=== PATIENT | male | born 1960 | race Caucasian/White ===

== ENCOUNTER → 2020-04-15 | Outpatient (CLI) | payer MEDICARE ==
[~2020-04-15] MED LIST: ACYC800 PO; Aspir 8181 MG PO; CLON2 PO; EPZICOM TABLET1 EAC1 PO; FLONASE ALLERG9.9 M2; LOPE2C; METO50ER PO; OMEP20ER PO; PRAM.125 PO; RALT400 PO; TESTONE CI200 MG/1 M; TRAZ100 PO
== END | disposition home or self-care (01) ==
LOC: LAB SHORT 11:30 → PLD 11:30
DX: L57.0 Actinic keratosis (principal)
CPT/HCPCS: 88305

== ENCOUNTER 2020-08-28 06:15 | Day surgery (SDC) | payer MEDICARE, OTHER ==
[~2020-08-28] VITALS: Ht 180.3 cm; Wt 75.6 kg
[~2020-08-28 06:15] MED LIST changes: +ABACAVIR-LAMIV1 EAC3 PO; +ACYC400 PO; +Aspirin EC81 MG PO; +CREON DR 24,001 EACH PO; +DEPO-TESTO200 MG/1 M IM; +Flonase 0.05% N16 GM; +LOPE2C PO; +NITR.4SL SL
--- NOTE | 2020-08-28 07:44 | NUR ---
08/28/20 0744 Angelita Landis BUPIVACAINE 0.5% 30 MLS MIXED W/ 0.15 ML EPI PER ORDER TO MAKE BUPIVACAINE 0.5% 1:200,000 FOR INJECTION AT OPSITE BY DR. GROVES. 20 MLS OF THIS INJECTED BY DR. GROVES.
[2020-11-09] MEDS ORDERED: Flonase 0.05% N16 GM (11:46)
[2020-11-09] MEDS ORDERED: CLON2 PO (11:46)
[2020-11-09] MEDS ORDERED: ABACAVIR-LAMIV1 EAC3 PO (11:46)
[2020-11-09] MEDS ORDERED: Aspirin EC81 MG PO (11:46)
[2020-11-09] MEDS ORDERED: LOPE2C PO (11:47)
[2020-11-09] MEDS ORDERED: CREON DR 24,001 EACH PO (11:47)
[2020-11-09] MEDS ORDERED: METO50ER PO (11:47)
[2020-11-09] MEDS ORDERED: PRAM.5 PO (11:48)
[2020-11-09] MEDS ORDERED: RALT400 PO (11:48)
[2020-11-09] MEDS ORDERED: NITR.4SL SL (11:48)
[2020-11-09] MEDS ORDERED: OMEP20ER PO (11:48)
[2020-11-09] MEDS ORDERED: TRAZ100 PO (11:49)
[2020-11-09] MEDS ORDERED: REVATIO20 MG (11:49)
[2020-11-09] MEDS ORDERED: DEPO-TESTO200 MG/1 M IM (11:49)
== END 2020-08-28 09:05 | disposition home or self-care (01) ==
LOC: ORSCSDS 06:15
PROVIDERS: Podiatrist Foot & Ankle Surgery
PROC: 0QBR0ZZ Excision of Left Toe Phalanx, Open Approach (ICD-10-PCS; principal; 2020-08-28 07:30)
PROC: 0QBP0ZZ Excision of Left Metatarsal, Open Approach (ICD-10-PCS; principal; 2020-08-28 07:30)
DX: M20.5X2 Other deformities of toe(s) (acquired), left foot (principal); B20 Human immunodeficiency virus [HIV] disease; I10 Essential (primary) hypertension; Z87.891 Personal history of nicotine dependence; N18.30 Chronic kidney disease, stage 3 unspecified; Z79.899 Other long term (current) drug therapy; Z79.82 Long term (current) use of aspirin
CPT/HCPCS: 88300; J0171; J0690; J2250; J2370; J2704; J3010

== ENCOUNTER 2020-10-27 06:10 | Day surgery (SDC) | payer MEDICARE ==
[~2020-10-27] VITALS: Ht 180.3 cm; Wt 73.2 kg
--- NOTE | 2020-10-27 07:41 | NUR ---
10/27/20 0741 Barb Gonzalez BUPIVACAINE 0.5% 30ML MIXED WITH EPI 0.15MG TO CONSTITUTE MARCAINE 0.5% W/ EPI 1:200,000 FOR INJECTION BY SURGEON
[2020-11-09] MEDS ORDERED: Aspirin EC81 MG PO (11:46)
[2020-11-09] MEDS ORDERED: CLON2 PO (11:46)
[2020-11-09] MEDS ORDERED: ABACAVIR-LAMIV1 EAC3 PO (11:46)
[2020-11-09] MEDS ORDERED: Flonase 0.05% N16 GM (11:46)
[2020-11-09] MEDS ORDERED: METO50ER PO (11:47)
[2020-11-09] MEDS ORDERED: LOPE2C PO (11:47)
[2020-11-09] MEDS ORDERED: CREON DR 24,001 EACH PO (11:47)
[2020-11-09] MEDS ORDERED: PRAM.5 PO (11:48)
[2020-11-09] MEDS ORDERED: NITR.4SL SL (11:48)
[2020-11-09] MEDS ORDERED: RALT400 PO (11:48)
[2020-11-09] MEDS ORDERED: OMEP20ER PO (11:48)
[2020-11-09] MEDS ORDERED: REVATIO20 MG (11:49)
[2020-11-09] MEDS ORDERED: TRAZ100 PO (11:49)
[2020-11-09] MEDS ORDERED: DEPO-TESTO200 MG/1 M IM (11:49)
== END 2020-10-27 08:44 | disposition home or self-care (01) ==
LOC: ORSCSDS 06:10
PROVIDERS: Podiatrist Foot & Ankle Surgery
PROC: 0QBQ0ZZ Excision of Right Toe Phalanx, Open Approach (ICD-10-PCS; principal; 2020-10-27 07:30)
PROC: 0QBN0ZZ Excision of Right Metatarsal, Open Approach (ICD-10-PCS; principal; 2020-10-27 07:30)
DX: M20.5X1 Other deformities of toe(s) (acquired), right foot (principal); B20 Human immunodeficiency virus [HIV] disease; I10 Essential (primary) hypertension; I25.10 Atherosclerotic heart disease of native coronary artery without angina pectoris; K21.9 Gastro-esophageal reflux disease without esophagitis; Z87.891 Personal history of nicotine dependence; Z79.899 Other long term (current) drug therapy; Z79.82 Long term (current) use of aspirin
CPT/HCPCS: 88305; 88311; J0171; J0690; J2001; J2250; J2704; J3010; J7120

== ENCOUNTER 2020-11-16 11:05 | Day surgery (SDC) | payer MEDICARE ==
[~2020-11-16] VITALS: Ht 180.3 cm; Wt 71.9 kg
[~2020-11-16 11:05] MED LIST changes: +PRAM.5 PO; +REVATIO20 MG
== END 2020-11-16 13:30 | disposition home or self-care (01) ==
LOC: ORSCSDS 11:05
PROVIDERS: Internal Medicine Gastroenterology
PROC: 0DJD8ZZ Inspection of Lower Intestinal Tract, Via Natural or Artificial Opening Endoscopic (ICD-10-PCS; principal; 2020-11-16 12:30)
DX: Z12.11 Encounter for screening for malignant neoplasm of colon (principal); Z86.010 Personal history of colon polyps; K64.8 Other hemorrhoids; K57.30 Diverticulosis of large intestine without perforation or abscess without bleeding; Z21 Asymptomatic human immunodeficiency virus [HIV] infection status; I10 Essential (primary) hypertension; I48.91 Unspecified atrial fibrillation; J44.9 Chronic obstructive pulmonary disease, unspecified; Z87.891 Personal history of nicotine dependence; Z79.82 Long term (current) use of aspirin; Z79.899 Other long term (current) drug therapy
CPT/HCPCS: J2704; J7120

== ENCOUNTER → 2022-03-07 | Outpatient (CLI) | payer MEDICARE ==
[2022-03-08 09:58] LABS: C DIFFICILE DNA NEGATIVE (Negative)
== END | disposition home or self-care (01) ==
LOC: LAB SHORT 13:45 → LAB 13:45 → LAB FUT 03-07 13:30 → EDSTATUS 03-07 13:30
PROVIDERS: Family Medicine
DX: I10 Essential (primary) hypertension (principal); B20 Human immunodeficiency virus [HIV] disease; E29.1 Testicular hypofunction; R19.7 Diarrhea, unspecified
CPT/HCPCS: 87493

== ENCOUNTER → 2024-10-17 | Outpatient (CLI) | payer MEDICARE | LOC: LAB SHORT 12:52 → LAB 12:52 | DX: L43.8 Other lichen planus (principal) | CPT/HCPCS: 88305; 88312 ==

== ENCOUNTER → 2025-01-28 | Outpatient (CLI) | payer MEDICARE | END | disposition home or self-care (01) | LOC: LAB SHORT 08:53 → LAB 08:53 | DX: D49.0 Neoplasm of unspecified behavior of digestive system (principal) | CPT/HCPCS: 88305; 88312 ==